=== PATIENT | male | born 1950 | race Caucasian/White ===

== ENCOUNTER → 2021-10-28 08:23 | Outpatient (BNVA) | payer MEDICARE, SELFPAY | PROVIDERS: Family Provider Family Medicine; PCP Family Medicine; Visit Provider Family Medicine | DX: Z00.00 Encounter for general adult medical examination without abnormal findings (principal); Z13.220 Encounter for screening for lipoid disorders; Z13.1 Encounter for screening for diabetes mellitus; Z12.5 Encounter for screening for malignant neoplasm of prostate | CPT/HCPCS: 80053; 80061; 83036; 84153; 85025 ==

== ENCOUNTER 2022-09-27 09:42 | Outpatient (CLI) | payer MEDICARE, SELFPAY ==
--- NOTE | 2022-09-27 10:07 | XRR_ITS ---
PROCEDURE INFORMATION: Exam: XR Left Knee Exam date and time: 09/27/2022 10:55 AM Age: 72 years old Clinical indication: Pain; Knee; Bilateral; Additional info: L knee pain TECHNIQUE: Imaging protocol: Radiologic exam of the left knee. Views: 3 views. COMPARISON: No relevant prior studies available. FINDINGS: Bones/joints: Alignment is normal. Joint spaces are preserved. Small tricompartmental osteophytes. No acute fracture. Moderate joint effusion. 8 mm osseous body projects over the medial joint space on frontal views. Soft tissues: Normal. XR/XR knee LT 3V* [id number] IMPRESSION: 1. Suspect 8 mm intra-articular loose body. 2. Moderate joint effusion. 3. Mild tricompartmental osteoarthritis.
--- NOTE | 2022-09-27 10:07 | XRR_ITS ---
PROCEDURE INFORMATION: Exam: XR Right Knee Exam date and time: 09/27/2022 10:55 AM Age: 72 years old Clinical indication: Pain; Knee; Bilateral; Additional info: R knee pain TECHNIQUE: Imaging protocol: Radiologic exam of the right knee. Views: 3 views. COMPARISON: No relevant prior studies available. FINDINGS: Bones/joints: Alignment is normal. Mild medial compartment joint space narrowing. Moderate medial compartment osteophytes. Small lateral and patellofemoral osteophytes. Suspect joint effusion. 9 mm osseous body projects over the medial joint space on frontal views and posteriorly on the lateral view. Soft tissues: Normal. XR/XR knee RT 3V* [id number] IMPRESSION: 1. Possible 9 mm intra-articular loose body. 2. Suspect joint effusion. 3. Moderate medial compartment and mild lateral and patellofemoral compartment osteoarthritis.
== END 2022-09-27 09:43 | disposition home or self-care (01) ==
PROVIDERS: PCP Family Medicine; Visit Provider Family Medicine
DX: M17.0 Bilateral primary osteoarthritis of knee (principal)
CPT/HCPCS: 73562

== ENCOUNTER → 2022-10-24 08:34 | Outpatient (BNVA) | payer MEDICARE, SELFPAY | PROVIDERS: PCP Family Medicine; Visit Provider Family Medicine | DX: I10 Essential (primary) hypertension (principal); Z13.220 Encounter for screening for lipoid disorders; Z51.81 Encounter for therapeutic drug level monitoring | CPT/HCPCS: 80053; 80061; 85025 ==

== ENCOUNTER → 2022-11-09 10:30 | Outpatient (BNVA) | payer MEDICARE, SELFPAY | PROVIDERS: PCP Family Medicine; Referring Provider Family Medicine; Visit Provider Specialist | DX: M17.0 Bilateral primary osteoarthritis of knee (principal) | CPT/HCPCS: 20610; 73560; 73565; 99214; J7327 ==

== ENCOUNTER → 2023-02-08 10:33 | Outpatient (BNVA) | payer MEDICARE, SELFPAY | PROVIDERS: PCP Family Medicine; Visit Provider Specialist | DX: M17.0 Bilateral primary osteoarthritis of knee | CPT/HCPCS: 99213 ==

== ENCOUNTER → 2023-02-16 10:26 | Outpatient (BNVA) | payer MEDICARE, SELFPAY | PROVIDERS: PCP Family Medicine; Referring Provider Specialist; Visit Provider Physician Assistant | DX: M48.062 Spinal stenosis, lumbar region with neurogenic claudication (principal); M51.36 Other intervertebral disc degeneration, lumbar region | CPT/HCPCS: 72110; 99203 ==

== ENCOUNTER 2023-03-17 10:35 | Outpatient (CLI) | payer MEDICARE, SELFPAY ==
--- NOTE | 2023-03-17 11:00 | MR_ITS ---
WS: [id number] MRI LUMBAR SPINE NONCONTRAST HISTORY: Pain, radiculopathy LEFT leg. COMPARISON: 01/15/2015 TECHNIQUE: Sagittal and axial multisequence imaging is submitted. Mild increase in thoracic kyphosis. Normal lumbar alignment with no compression fractures or marrow edema. No significant narrowing of the disc spaces. Conus terminates normally at L1. L1-L2: Mild annular disc bulging with mild ligamentum flavum and facet arthritis. Very mild encroachm ent upon the ventral thecal sac by the disc bulging and facet arthritis. Small fissure in the LEFT fo ramen. L2-L3: Mild annular disc bulging with ligamentum flavum and facet arthritis. There is greater encroac hment upon the ventral thecal sac and the subarticular recesses. Mild bilateral subarticular recess e ncroachment. Disc contacts the traversing L3 nerve roots. L3-L4: Diffuse annular disc bulging with moderate ligamentum flavum and facet arthritis. Small annula r fissure LEFT foramen. Shallow bilateral foraminal disc protrusions. Similar to the prior study. Pro gression of mild central and foraminal stenoses. Moderate bilateral subarticular recess encroachment upon the traversing L4 nerve roots. L4-L5: Diffuse annular disc bulging with marked ligamentum flavum and facet arthritis which is increa sed since the prior study. Moderate central, bilateral subarticular recess and LEFT foraminal stenosi s. Mild RIGHT foraminal stenosis. There is significant disc encroachment upon the traversing L5 nerve roots and the LEFT exiting L4 nerve root. L5-S1: Mild annular disc bulging with ligamentum flavum and facet arthritis. Mild encroachment upon t he subarticular recesses and S1 nerve roots. Paravertebral soft tissues are normal. IMPRESSION: 1. Significant progression of disc, facet and ligamentum flavum disease with stenoses since 2014. 2. L4-5: Moderate central, bilateral subarticular recess and LEFT foraminal stenosis. Mild RIGHT fora sheila stenosis. There is significant encroachment upon the traversing L5 nerve roots in the LEFT exit ing L4 nerve root. 3. L3-4: Bilateral foraminal disc protrusion similar to the prior study. Progression of mild central and foraminal stenosis. Moderate bilateral subarticular recess encroachment upon the traversing L4 ne rve roots. 4. L2-3 mild bilateral subarticular recess encroachment.
== END 2023-03-17 10:36 | disposition home or self-care (01) ==
PROVIDERS: PCP Family Medicine; Visit Provider Physician Assistant
DX: M48.061 Spinal stenosis, lumbar region without neurogenic claudication (principal); M51.26 Other intervertebral disc displacement, lumbar region
CPT/HCPCS: 72148

== ENCOUNTER → 2023-04-12 13:33 | Outpatient (BNVA) | payer MEDICARE, SELFPAY | PROVIDERS: PCP Family Medicine; Visit Provider Physician Assistant | DX: M51.36 Other intervertebral disc degeneration, lumbar region (principal); M48.062 Spinal stenosis, lumbar region with neurogenic claudication | CPT/HCPCS: 99213 ==

== ENCOUNTER → 2023-06-15 09:45 | Outpatient (BNVA) | payer MEDICARE, SELFPAY | PROVIDERS: PCP Family Medicine; Referring Provider Family Medicine; Visit Provider Orthopaedic Surgery | DX: M48.062 Spinal stenosis, lumbar region with neurogenic claudication (principal) | CPT/HCPCS: 72100; 99214 ==

== ENCOUNTER → 2023-07-12 08:44 | Outpatient (BNVA) | payer MEDICARE, SELFPAY | PROVIDERS: PCP Family Medicine; Visit Provider Anesthesiology Pain Medicine | DX: M48.062 Spinal stenosis, lumbar region with neurogenic claudication (principal); M51.36 Other intervertebral disc degeneration, lumbar region; M47.816 Spondylosis without myelopathy or radiculopathy, lumbar region | CPT/HCPCS: 99204 ==

== ENCOUNTER → 2023-07-31 14:18 | Outpatient (BNVA) | payer MEDICARE, SELFPAY | PROVIDERS: PCP Family Medicine; Visit Provider Anesthesiology Pain Medicine | DX: M54.16 Radiculopathy, lumbar region (principal); M48.062 Spinal stenosis, lumbar region with neurogenic claudication | CPT/HCPCS: 64483; 64484; J1100; J3490 ==

== ENCOUNTER → 2023-08-14 10:33 | Outpatient (BNVA) | payer MEDICARE, SELFPAY | PROVIDERS: PCP Family Medicine; Visit Provider Anesthesiology Pain Medicine | DX: M48.062 Spinal stenosis, lumbar region with neurogenic claudication (principal); M51.36 Other intervertebral disc degeneration, lumbar region; M47.816 Spondylosis without myelopathy or radiculopathy, lumbar region | CPT/HCPCS: 99214 ==

== ENCOUNTER → 2024-02-14 07:06 | Outpatient (BNVA) | payer MEDICARE, SELFPAY | PROVIDERS: PCP Family Medicine; Visit Provider Family Medicine | DX: Z13.220 Encounter for screening for lipoid disorders (principal); Z51.81 Encounter for therapeutic drug level monitoring; I10 Essential (primary) hypertension; E55.9 Vitamin D deficiency, unspecified | CPT/HCPCS: 80053; 80061; 82306; 84153; 85025 ==